=== PATIENT | female | born 1980 | race Caucasian/White ===

== ENCOUNTER 2017-02-02 22:35 | Emergency (ER) | payer BC ==
[~2017-02-02] VITALS: Ht 157.5 cm; Wt 52.2 kg
--- NOTE | ~2017-02-02 | CT2 ---
[facility] A Service of [facility] RADIOLOGY TEXT RESULTS PATIENT: SHERLYN KIMBROUGH LOCATION: [facility] : 76 UNIT #: [id number] AGE: [address]: Jose Martinez SEX: F ORDER DR: [id number] [facility] [address] [place], [place] [address] [id number] MR#: [id number] Acc #: [id number] NAME: SHERLYN KIMBROUGH : 1980 SEX: F STUDY DATE/TIME: 02/03/2017 2:09 UNIT: [facility] ROOM: STUDY DESCRIPTION: CT Abd and Pelv W Cont Attending Physician: Jose Martinez P.A.-C. Ordering Physician: Jose Martinez P.A.-C. Primary Care Physician: Primary Care Physician No MEDICAL IMAGING REPORT This report is preliminary unless electronic signature is present EXAM CT abdomen and pelvis with contrast INDICATION Left lower quadrant abdominal pain for the past few days. PROCEDURE Contrast-enhanced CT of the abdomen and pelvis. This CT exam was performed with one or more of the following radiation dose reduction techniques: automatic exposure control, adjustment of mA and/or kV according to patient size, and iterative reconstruction. COMPARISON None FINDINGS ABDOMEN WITH CONTRAST: included lung bases clear. Liver, spleen, kidneys, adrenal glands, pancreas, gallbladder unremarkable. Bowel loops are nondilated. Moderate colonic stool. Appendix is normal. PELVIS WITH CONTRAST: 4.2 cm cyst in the left adnexa. Trace amount of fluid in the pelvis. No aggressive appearing bone lesion. IMPRESSION 1. 4.2 cm cyst in the left adnexa with a trace amount of pelvic fluid probably physiologic findings for the patient's age, representing a functional cyst. This could be followed with pelvic ultrasound to document resolution. 2. Appendix is normal. 1. [facility] A Service of [facility] RADIOLOGY TEXT RESULTS PATIENT: SHERLYN KIMBROUGH LOCATION: [facility] : 76 UNIT #: [id number] AGE: [address]: Jose Martinez PAC SEX: F ORDER DR: Dictated by... Catracho Armstrong M.D. THIS IS AN ELECTRONICALLY VERIFIED REPORT Catracho Armstrong M.D. at 02/03/2017 10:01 PM Linnea TD: 02/03/2017 10:13 JOB #: [id number] MEDICAL IMAGING REPORT Page 1 of 1 COPY
[~2017-02-02 22:35] MED LIST: ALLERGY10 M1; BUPROPION XL300 MG; ST JOSEPH ASPIR81 MG; VOLTAREN75 MG
[2017-02-03 00:12] LABS: URINE SOURCE CLEAN CATCH
[2017-02-03 00:16] LABS: BASOPHIL# 0.1 X10e3 (0-0.3); BASOPHIL% 0.8 % (0-2.5); EOSINOPHIL# 0.5 X10e3 (0-0.7); HEMATOCRIT 40.7 % (35.0-45.0); HEMOGLOBIN 13.5 gm/dL (12.0-16.0); LYMPHOCYTE# 2.1 X10e3 (1.0-3.5); LYMPHOCYTE% 27.5 % (17.0-45.0); MEAN CELL VOLUME 98.1 FL (83-96); MEAN CORPUSCULAR HEMOGLOBIN 32.7 PG (28-34); MEAN CORPUSCULAR HGB CONC 33.3 g/dL (30-36); MEAN PLATELET VOLUME 8.2 FL (6.5-11.5); MONOCYTE# 0.5 X10e3 (0-1.0); MONOCYTE% 6.5 % (3.0-12.0); NEUTROPHIL# 4.5 X10e3 (1.5-7.1); NEUTROPHIL% 58.2 % (40-75); PLATELET COUNT 195 X10e3 (140-420); RED BLOOD COUNT 4.15 X10e (3.90-5.30); URINE APPEARANCE CLOUDY; URINE BILIRUBIN NEG (NEG); URINE BLOOD 3+ (NEG); URINE COLOR ORANGE; URINE GLUCOSE NEG (NEG); URINE KETONE TRACE (NEG); URINE LEUKOCYTE ESTERASE 1+ (NEG); URINE NITRATE NEG (NEG); URINE PROTEIN 1+ (NEG); URINE SPECIFIC GRAVITY 1.019 (1.003-1.035); URINE UROBILINOGEN 0.2 MG/DL (NEG); WHITE BLOOD COUNT 7.8 X10e3 (4.0-10.5)
[2017-02-03 00:19] LABS: CULTURE INDICATED? YES; URBCS1 AUWI INNUM /[HPF] (0-2); URINE BACTERIA AUWI NEG (NEGATIVE); URINE SQUAMOUS EPITHELIAL CELL NONE SEEN /[HPF]; UWBCS1 AUWI 25-50 (0-5)
[2017-02-03 00:21] LABS: DIFF IND NO
[2017-02-03 00:35] LABS: BUN/CREATININE RATIO 10.83; CALCIUM SERUM 8.6 mg/dL (8.4-10.2); CREATININE SERUM 1.2 mg/dL (0.6-1.4); GLOM FILT RATE Estimated 57.3 mL/min (>60); POTASSIUM 3.7 mmol/L (3.5-5.1)
[2017-02-03 00:52] LABS: ALBUMIN SERUM 4.4 g/dL (3.5-5.0); ALKALINE PHOSPHATASE 75 U/L (32-92); ALT (SGPT) 15 U/L (10-40); AST (SGOT) 20 U/L (10-42); BILIRUBIN,TOTAL 0.3 mg/dL (0.2-2.0); LIPASE 32 U/L (22-51); PROTEIN TOTAL SERUM 6.7 g/dL (6.0-8.3)
[2017-02-03 00:56] LABS: BILIRUBIN, DIRECT <0.1 mg/dL (0.0-0.2); BILIRUBIN,INDIRECT 0.2 mg/dL (0.0-0.9)
== END 2017-02-03 03:39 | disposition home or self-care (01) ==
LOC: CFTX 22:35 → CED 22:35 → CFTX 23:59
PROVIDERS: Physician Assistant
DX: N83.202 Unspecified ovarian cyst, left side (principal); N30.90 Cystitis, unspecified without hematuria; R19.7 Diarrhea, unspecified; F17.210 Nicotine dependence, cigarettes, uncomplicated; Z98.51 Tubal ligation status
CPT/HCPCS: 36415; 74177; 80048; 80076; 81003; 83690; 84703; 85025; 87086; 96361; 96374; 99284; J0696; Q9967